=== PATIENT | female | born 1985 | race Caucasian/White ===

== ENCOUNTER 2020-12-27 20:41 | Inpatient (IN) | payer OTHER ==
[~2020-12-27] VITALS: Ht 170.2 cm; Wt 90.7 kg
[~2020-12-27 20:41] MED LIST: AMOX500 PO; CLAR500 PO; HYDACE5 PO; HYDACE5325 PO; HYDROXYZINE; HYOS.125 SL; IBUP800 PO; LANS30EC PO; METR500 PO; OXYACE5T PO; PENVK500 PO; PROM25 PO; RANI150 PO; SILSUL1TC TOP; TRAM50 PO
[2020-12-27 21:34] LABS: BASOPHILS ABSOLUTE AUTO 0.06 K/mm3 (0.00-0.23); BASOPHILS PERCENT AUTO 0 % (0-2); EOSINOPHILS ABSOLUTE AUTO 0.05 K/mm3 (0.00-0.68); EOSINOPHILS PERCENT AUTO 0 % (0-6); Hematocrit 40.5 % (33.0-51.0); Hemoglobin 13.6 g/dL (11.5-16.0); IMMATURE GRAN ABSOLUTE AUTO 0.13 K/mm3 (0.00-0.10); IMMATURE GRAN PERCENT AUTO 1 % (0-1); LYMPHOCYTES ABSOLUTE AUTO 2.94 K/mm3 (0.84-5.20); LYMPHOCYTES PERCENT AUTO 14 % (21-46); MONOCYTES PERCENT AUTO 10 % (4-13); Mean Corpuscular HGB 30.5 pg (26.0-34.0); Mean Corpuscular HGB Conc 33.6 g/dL (31.5-36.5); Mean Corpuscular Volume 91 fL (80-100); Mean Platelet Volume 9.7 fL (9.1-12.4); NEUTROPHILS PERCENT AUTO 75 % (41-73); Platelet Count 256 K/mm3 (150-400); RDW Coefficient Variation 12.8 % (11.7-14.2); RDW Standard Deviation 42.6 fL (35.1-46.3); Red Blood Cell Count 4.46 M/mm3 (3.80-5.20); White Blood Cell Count 21.48 K/mm3 (4.00-11.30)
[2020-12-27 21:56] LABS: Alanine Aminotransfer (ALT/SGP 38 U/L (12-78); Albumin, Blood 3.4 g/dL (3.4-5.0); Albumin/Globulin Ratio 0.8 (0.8-1.8); Alk Phos 104 U/L (50-136); Anion Gap 4 mmol/L (6-16); Aspartate Aminotrans (AST/SGOT 17 U/L (12-37); Bilirubin, Total 0.7 mg/dL (0.1-1.0); Blood Urea Nitrogen 10 mg/dL (8-24); Bun/Creatinine Ratio 10.8 (12.0-20.0); CO2, Blood 28 mmol/L (21-32); Chloride, Blood 104 mmol/L (98-108); Creatinine, Blood 0.93 mg/dL (0.40-1.00); Globulin, Blood 4.4 g/dL (2.2-4.0); Glomerular Filtration Rate >60 (60-); Glucose, Blood 96 mg/dL (70-99); Potassium, Blood 3.5 mmol/L (3.5-5.5); Sodium, Blood 136 mmol/L (136-145); Total Protein, Blood 7.8 g/dL (6.4-8.2)
[2020-12-27 21:57] LABS: Source, Urine Clean Catch
[2020-12-27 21:58] LABS: Bilirubin, Urine Neg (Neg); Blood, Urine 5+ (Neg); Glucose Qualitative, Urine Neg (Neg); Ketones, Urine Neg (Neg); Leukocyte Esterase, Urine 3+ (Neg); Nitrite, Urine Neg (Neg); Protein, Urine 2+ (Neg); Urobilinogen, Urine NORM (Normal)
[2020-12-27 22:08] LABS: Appearance, Urine Clear (Clear); Color, Urine Yellow (P-Yellow)
[2020-12-27 22:09] LABS: Bacteria Mod /hpf; Squamous Epithelial Cells Few /hpf (Few)
[2020-12-27 22:36] LABS: Troponin I <0.015 ng/mL (0.000-0.040)
[2020-12-27 23:37] LABS: U Amphetamine Screen Not Detected; U Barbituate Screen Not Detected; U Benzodiazapine Screen Not Detected; U Buprenorphine Screen Not Detected; U Cannabinoids Screen DETECTED; U Cocaine Screen Not Detected; U Methadone Screen Not Detected; U Methamphetamine Screen Not Detected; U Opiates Screen Not Detected; U Oxycodone Screen Not Detected; U Phencyclidine Screen Not Detected; U Propoxyphene Screen Not Detected
[2020-12-28 01:43] LABS: SARS-Cov-2 (COVID-19) PCR, MMC NEGATIVE (NEGATIVE)
--- NOTE | 2020-12-28 02:01 | NUR ---
ADMIT NOTE HANDOFF RECEIVED FROM ER NURSE JAGDISH. PT TRANSFERED TO FLOOR VIA GURNEY. PERSONAL POSSESSIONS WITH PT. PT ORIENTED TO UNIT. CALL BUTTON WITHIN REACH
--- NOTE | 2020-12-28 04:33 | NUR ---
SHIFT SUMMARY ADMITTED FOR N/V/ABDOMINAL PAIN THIS SHIFT. FULL CODE. IV FLUIDS INFUSING ORDERED. TELEMETRY: NSR @ 96 BPM. IV ANTIBIOTICS ARE SCHEDULED. REGULAR DIET. SHE DOES HAVE A HX OF IBS, H. PYLORI, DEPRESSION, ANXIETY, METH USE. SHE IS A&O X4, COOPERATIVE WITH CARE. IV TORADOL IN EMAR FOR PAIN CONTROL. COVID TEST WAS NEGATIVE.
[2020-12-28 04:41] LABS: BASOPHILS ABSOLUTE AUTO 0.04 K/mm3 (0.00-0.23); BASOPHILS PERCENT AUTO 0 % (0-2); EOSINOPHILS ABSOLUTE AUTO 0.07 K/mm3 (0.00-0.68); EOSINOPHILS PERCENT AUTO 0 % (0-6); Hematocrit 36.5 % (33.0-51.0); Hemoglobin 12.2 g/dL (11.5-16.0); IMMATURE GRAN ABSOLUTE AUTO 0.06 K/mm3 (0.00-0.10); IMMATURE GRAN PERCENT AUTO 0 % (0-1); LYMPHOCYTES ABSOLUTE AUTO 2.24 K/mm3 (0.84-5.20); LYMPHOCYTES PERCENT AUTO 13 % (21-46); MONOCYTES ABSOLUTE AUTO 1.42 K/mm3 (0.16-1.47); MONOCYTES PERCENT AUTO 8 % (4-13); Mean Corpuscular HGB 30.7 pg (26.0-34.0); Mean Corpuscular HGB Conc 33.4 g/dL (31.5-36.5); Mean Corpuscular Volume 92 fL (80-100); Mean Platelet Volume 9.6 fL (9.1-12.4); NEUTROPHILS ABSOLUTE AUTO 13.74 K/mm3 (1.96-9.15); NEUTROPHILS PERCENT AUTO 78 % (41-73); Platelet Count 213 K/mm3 (150-400); RDW Coefficient Variation 12.8 % (11.7-14.2); Red Blood Cell Count 3.97 M/mm3 (3.80-5.20); White Blood Cell Count 17.57 K/mm3 (4.00-11.30)
[2020-12-28 05:13] LABS: Anion Gap 5 mmol/L (6-16); Blood Urea Nitrogen 13 mg/dL (8-24); CO2, Blood 28 mmol/L (21-32); Calcium, Blood 8.6 mg/dL (8.5-10.1); Chloride, Blood 108 mmol/L (98-108); Creatinine, Blood 0.87 mg/dL (0.40-1.00); Glomerular Filtration Rate >60 (60-); Glucose, Blood 122 mg/dL (70-99); Potassium, Blood 3.6 mmol/L (3.5-5.5); Sodium, Blood 141 mmol/L (136-145)
--- NOTE | 2020-12-28 12:23 | NUR ---
CALLED ABOUT NEW ONSET LEFT SIDED C.P. RAD TO LEFT SHLDR. C/O SOB . CURRENTLY TAKING V.S. NO CHANGES ON TELE. TO ORDER EKG AND TROP X 3. ACADEMIC SUPPORT SPECIALIST DOING EKG.
--- NOTE | 2020-12-29 04:58 | NUR ---
SHIFT SUMMARY ADMITTED FOR PYELONEPHRITIS. FULL CODE. LR INFUSING @ 125 ML/HR. IV ANTIB RX ARE SCHEDULED. SHE ADMITS TO RECENT HX OF METH USE. TELEMETRY: NSR @ 95 BPM. PT APPEARED TO ESCALATE EMOTIONALLY AT A FEW POINTS DURING SHIFT. THERE APPEARS TO BE SOME SOCIAL/HOME LIFE CONCERNS THAT ARE PRODUCING ANXIETY, THAT I BELIEVE MAY BE COMPLICATING HER ISSUES. SHE STATES HER PAIN IS NOT CONTROLLED WITH THE CURRENT REGIMEN. I DID MEDICATE FOR ANXIETY WELL ONE TIME THIS SHIFT. HX: IBS, FIBROMYALGIA, ANXIETY, DEPRESSION
--- NOTE | 2020-12-29 06:10 | NUR ---
PT REFUSING LABS PT IS REFUSING LABS. SHE STATES SHE WILL NOT SUBMIT TO LAB WORK SHE IS IN TOO MUCH PAIN AND NEEDS MORE PAIN MEDICATION.
--- NOTE | 2020-12-29 08:06 | NUR ---
pt oob to void yelling in pain meds given ice pack given for h/a pt reports severe pain to upper abd worse on the l side no burning with urination but urgency pt febrile this am at 100
[2020-12-29 08:45] LABS: BASOPHILS ABSOLUTE AUTO 0.05 K/mm3 (0.00-0.23); BASOPHILS PERCENT AUTO 0 % (0-2); EOSINOPHILS ABSOLUTE AUTO 0.12 K/mm3 (0.00-0.68); EOSINOPHILS PERCENT AUTO 1 % (0-6); Hematocrit 36.2 % (33.0-51.0); IMMATURE GRAN ABSOLUTE AUTO 0.05 K/mm3 (0.00-0.10); IMMATURE GRAN PERCENT AUTO 0 % (0-1); LYMPHOCYTES ABSOLUTE AUTO 1.39 K/mm3 (0.84-5.20); LYMPHOCYTES PERCENT AUTO 9 % (21-46); MONOCYTES ABSOLUTE AUTO 1.11 K/mm3 (0.16-1.47); MONOCYTES PERCENT AUTO 7 % (4-13); Mean Corpuscular HGB 29.9 pg (26.0-34.0); Mean Corpuscular HGB Conc 33.1 g/dL (31.5-36.5); Mean Corpuscular Volume 90 fL (80-100); Mean Platelet Volume 10.3 fL (9.1-12.4); NEUTROPHILS ABSOLUTE AUTO 13.41 K/mm3 (1.96-9.15); NEUTROPHILS PERCENT AUTO 83 % (41-73); Platelet Count 214 K/mm3 (150-400); RDW Coefficient Variation 12.8 % (11.7-14.2); RDW Standard Deviation 42.7 fL (35.1-46.3); Red Blood Cell Count 4.01 M/mm3 (3.80-5.20); White Blood Cell Count 16.13 K/mm3 (4.00-11.30)
[2020-12-29 08:57] LABS: Anion Gap 6 mmol/L (6-16); Blood Urea Nitrogen 9 mg/dL (8-24); Bun/Creatinine Ratio 13.5 (12.0-20.0); CO2, Blood 26 mmol/L (21-32); Calcium, Blood 8.6 mg/dL (8.5-10.1); Chloride, Blood 104 mmol/L (98-108); Creatinine, Blood 0.67 mg/dL (0.40-1.00); Glomerular Filtration Rate >60 (60-); Glucose, Blood 107 mg/dL (70-99); Potassium, Blood 3.8 mmol/L (3.5-5.5); Sodium, Blood 136 mmol/L (136-145)
--- NOTE | 2020-12-29 13:00 | NUR ---
pt had accident in the bed got in the shower linen changed attends given
--- NOTE | 2020-12-29 17:43 | NUR ---
Shift Summary Assumed care at 1500 from LEEANNA Zheng. Upon entering room, patient resting and sleeping in bed with ice pack on eyes. VS shows hypertension and febrile oral temp of 103.6. Blankets removed except flat sheet. Patient became anxious and moving around in bed. Additional ice packs placed in arm pits, back, chest. Medicated for SKINNER, back pain, temp, and anxiety. at the bedside during my encounter. Patient had incontinence episode, linens and brief were then changed. LR @ 125 continuous. Continues to have urgency with voids, denies dysuria. Patient not making eye contact, minimal verbal contact except for when in pain. Follows directions and easily awakens to verbal/tactile stimuli however. WCTM.
[2020-12-30 05:20] LABS: BASOPHILS ABSOLUTE AUTO 0.04 K/mm3 (0.00-0.23); BASOPHILS PERCENT AUTO 0 % (0-2); EOSINOPHILS ABSOLUTE AUTO 0.14 K/mm3 (0.00-0.68); EOSINOPHILS PERCENT AUTO 1 % (0-6); Hematocrit 34.3 % (33.0-51.0); Hemoglobin 11.4 g/dL (11.5-16.0); IMMATURE GRAN ABSOLUTE AUTO 0.07 K/mm3 (0.00-0.10); IMMATURE GRAN PERCENT AUTO 1 % (0-1); LYMPHOCYTES ABSOLUTE AUTO 1.54 K/mm3 (0.84-5.20); LYMPHOCYTES PERCENT AUTO 13 % (21-46); MONOCYTES ABSOLUTE AUTO 1.37 K/mm3 (0.16-1.47); MONOCYTES PERCENT AUTO 12 % (4-13); Mean Corpuscular HGB 30.4 pg (26.0-34.0); Mean Corpuscular HGB Conc 33.2 g/dL (31.5-36.5); Mean Corpuscular Volume 92 fL (80-100); Mean Platelet Volume 10.4 fL (9.1-12.4); NEUTROPHILS ABSOLUTE AUTO 8.75 K/mm3 (1.96-9.15); NEUTROPHILS PERCENT AUTO 74 % (41-73); Platelet Count 225 K/mm3 (150-400); RDW Coefficient Variation 13.1 % (11.7-14.2); RDW Standard Deviation 43.7 fL (35.1-46.3); Red Blood Cell Count 3.75 M/mm3 (3.80-5.20); White Blood Cell Count 11.91 K/mm3 (4.00-11.30)
--- NOTE | 2020-12-30 05:21 | NUR ---
SHIFT SUMMARY ADMITTED FOR PYELONEPHRITIS/SEPSIS. FULL CODE. IV ANTIBIOTICS ARE SCHEDULED. LR INFUSING @ 125 ML/HR. TELEMETRY: TACH @ 109 BPM. SHE HAD TWO NOSEBLEEDS THIS SHIFT. SHE HAS BEEN RUNNING LOW GRADE FEVERS. MEDICATED FOR PAIN THIS SHIFT. SHE HAS BEEN INCONTINENT. SHE WAS NOT INCONTINENT ON ADMIT.
[2020-12-30 05:48] LABS: Anion Gap 6 mmol/L (6-16); Blood Urea Nitrogen 11 mg/dL (8-24); Bun/Creatinine Ratio 14.3 (12.0-20.0); CO2, Blood 26 mmol/L (21-32); Calcium, Blood 8.2 mg/dL (8.5-10.1); Chloride, Blood 103 mmol/L (98-108); Creatinine, Blood 0.77 mg/dL (0.40-1.00); Glomerular Filtration Rate >60 (60-); Glucose, Blood 139 mg/dL (70-99); Potassium, Blood 3.5 mmol/L (3.5-5.5); Sodium, Blood 135 mmol/L (136-145)
--- NOTE | 2020-12-30 12:06 | NUR ---
PT HAS STARTED TO HAVE A BLOODY NOSE AND HAS MULTIPLE TISSUES ON BED. DR TRISTAN WAS NOTIFIED AND DID NOT WANT TO STOP LOVENOX AT THIS TIME. WILL CONTINUE TO MONITOR PT AND ARDEN WOODWARD IF BLOODY NOSE WORSENS.
--- NOTE | 2020-12-30 17:05 | NUR ---
PT AO AND COOPERATIVE OF CARE. PT TREATED FOR PAIN AND AXIETY PER EMAR. PT STATES SHE IS FEELING MUCH BETTER THE DAY HAS PROGRESS. PT IS INDEPENDENT IN ROOM AND CAN CALL APPROPRIATELY. PT AT TIMES WILL GET IN A HURRY TO USE RESTROOM TO VOID, BUT HAS BEEN CONTINENT AT THIS TIME. CALL LIGHT IS WITHIN REACH WILL CONTINUE TO MONITOR.
--- NOTE | 2020-12-31 06:50 | NUR ---
SHIFT SUMMARY: NO ACUTE CHANGES, VSS. CONTINUES TO REPORT HEADACHE 3/10 UP TO 8/10 WITH ACTIVITY. SCHEDULED TYLENOL AND PRN TORADOL AND ONE DOSE OF OXYCODONE FOR BREATH THROUGH PAIN PROVIDED GOOD PAIN CONTROL.
[2020-12-31 07:44] LABS: Hemoglobin 11.5 g/dL (11.5-16.0); Mean Corpuscular HGB 30.9 pg (26.0-34.0); Mean Corpuscular HGB Conc 33.8 g/dL (31.5-36.5); Mean Corpuscular Volume 91 fL (80-100); Mean Platelet Volume 9.9 fL (9.1-12.4); Platelet Count 259 K/mm3 (150-400); RDW Standard Deviation 43.3 fL (35.1-46.3); Red Blood Cell Count 3.72 M/mm3 (3.80-5.20); White Blood Cell Count 12.35 K/mm3 (4.00-11.30)
[2020-12-31 08:05] LABS: Anion Gap 6 mmol/L (6-16); Blood Urea Nitrogen 8 mg/dL (8-24); Bun/Creatinine Ratio 11.6 (12.0-20.0); CO2, Blood 26 mmol/L (21-32); Calcium, Blood 8.2 mg/dL (8.5-10.1); Chloride, Blood 105 mmol/L (98-108); Creatinine, Blood 0.69 mg/dL (0.40-1.00); Glomerular Filtration Rate >60 (60-); Glucose, Blood 100 mg/dL (70-99); Potassium, Blood 3.5 mmol/L (3.5-5.5); Sodium, Blood 137 mmol/L (136-145)
[2020-12-31 08:07] LABS: BASOPHILS ABSOLUTE MAN 0.12 K/mm3 (0.00-0.23); BASOPHILS PERCENT MAN 1 % (0-2); EOSINOPHILS ABSOLUTE MAN 0.12 K/mm3 (0.00-0.68); EOSINOPHILS PERCENT MAN 1 % (0-6); LYMPHOCYTES % ATYPICAL MANUAL 1 % (0-0); LYMPHOCYTES ABSOLUTE MAN 2.09 K/mm3 (0.84-5.20); LYMPHOCYTES PERCENT MAN 16 % (21-46); MONOCYTES ABSOLUTE MAN 1.35 K/mm3 (0.16-1.47); MONOCYTES PERCENT MAN 11 % (4-13); NEUTROPHILS ABSOLUTE MAN 8.64 K/mm3 (1.96-9.15); SEG NEUTROPHILS PERCENT MAN 70 % (41-73); TOTAL CELLS COUNTED 100
[2020-12-31] MEDS ORDERED: ACET325 PO (13:25)
[2020-12-31] MEDS ORDERED: FAMO20 PO (13:26)
[2020-12-31] MEDS ORDERED: IBUP400 PO (13:28)
[2020-12-31] MEDS ORDERED: Atarax10 MG PO (13:28)
[2020-12-31] MEDS ORDERED: Nicoderm Cq1 EAC1 TOP (13:29)
[2020-12-31] MEDS ORDERED: OXYC5 PO (13:30)
[2020-12-31] MEDS ORDERED: CEFD300 PO (13:30)
[2020-12-31] MEDS ORDERED: VISBIOME 112.51 EACH PO (13:30)
--- NOTE | 2020-12-31 16:07 | NUR ---
DISCHARGE SUMMARY PIV REMOVED, DISCHARGE PAPERWORK GONE OVER, [facility] PHYSICAL SCRIPT OF NARCOTIC GIVEN, COPY IN CHART. PT WHEELED OUT IN WC. F/U APPT MADE WITH TRANSFER OF CARE CL[facility] AT [facility]
== END 2020-12-31 16:02 | disposition home or self-care (01) | DRG 872 ==
LOC: ER 20:41 → MEDS 23:26 → ENPENDDIS 12-31 12:53 → MEDS 12-31 16:02
PROVIDERS: Family Medicine; Physician Assistant; ADMIT Family Medicine
DX: A41.51 Sepsis due to Escherichia coli [E. coli] (principal); N13.6 Pyonephrosis; K58.9 Irritable bowel syndrome, unspecified; Z20.822 Contact with and (suspected) exposure to COVID-19; F15.10 Other stimulant abuse, uncomplicated; R07.89 Other chest pain; F41.9 Anxiety disorder, unspecified; F17.210 Nicotine dependence, cigarettes, uncomplicated; Z71.6 Tobacco abuse counseling; Z98.51 Tubal ligation status; Z98.890 Other specified postprocedural states; Z88.6 Allergy status to analgesic agent; Z79.899 Other long term (current) drug therapy
CPT/HCPCS: 36415; 71045; 74176; 80048; 80053; 81001; 83605; 83690; 84484; 84703; 85025; 87040; 87077; 87086; 87186; 93005; 93010; 96365; 96375; 96376; 99285-25; A9270; J0696; J1650; J1885; J2405; J7030; J7050; J7120; U0004

== ENCOUNTER → 2021-01-14 | Outpatient (CLI) | payer SELFPAY ==
[~2021-01-14] MED LIST changes: +ACET325 PO; +Atarax10 MG PO; +CEFD300 PO; +FAMO20 PO; +IBUP400 PO; +Nicoderm Cq1 EAC1 TOP; +OXYC5 PO; +VISBIOME 112.51 EACH PO
[2021-01-14 19:03] LABS: Appearance, Urine Clear (Clear); Bilirubin, Urine Neg (Neg); Blood, Urine 1+ (Neg); Color, Urine Yellow (P-Yellow); Glucose Qualitative, Urine Neg (Neg); Ketones, Urine Neg (Neg); Leukocyte Esterase, Urine 1+ (Neg); Nitrite, Urine Neg (Neg); Protein, Urine Neg (Neg); Specific Gravity, Urine 1.015 (1.003-1.022); Urobilinogen, Urine 1+ (Normal)
[2021-01-14 19:10] LABS: Bacteria Mod /hpf; Red Blood Cells, Urine 0-2 /hpf (0-2); Squamous Epithelial Cells Few /hpf (Few)
== END | disposition home or self-care (01) ==
LOC: LAB SHORT 15:47
PROVIDERS: Internal Medicine
DX: N10 Acute pyelonephritis (principal)
CPT/HCPCS: 81001; 87086